=== PATIENT | female | born 1995 | race Caucasian/White ===

== ENCOUNTER 2021-08-31 13:51 | Outpatient (CLI) | payer BC, SELFPAY ==
[2021-08-31] VITALS (8 sets, daily range): BP systolic 125–143; BP diastolic 74–82; PULSE 78–101; RESP 18; TEMP 36.6; BMI 29.7
[2021-08-31 14:31] LABS: Basophils # 0.1 10^3/uL (0.0-0.1); Basophils % 0.7 %; Eosinophils # 0.1 10^3/uL (0.0-0.8); Eosinophils % 0.9 %; Hematocrit 34.2 % (37.0-47.0); Lymphocytes # 1.8 10^3/uL (0.8-4.8); Lymphocytes % 20.5 %; Mean Corpuscular HGB Conc 32.2 g/dL (30.0-36.0); Mean Corpuscular Hemoglobin 27.5 pg (28.0-34.0); Mean Corpuscular Volume 85.5 fl (81-99); Mean Platelet Volume 11.6 fL (7.4-10.4); Monocytes # 0.5 10^3/uL (0.2-0.9); Monocytes % 6.2 %; Neutrophils % 69.4 %; Nucleated Red Blood Cells % 0 %; Platelet Count 190 10^3/cmm (130-400); Red Cell Distribution Width 13.8 % (12.1-15.1); White Blood Count 8.5 10^3/uL (4.0-10.0)
[2021-08-31 14:53] LABS: Alanine Aminotransferase 13 U/L (0-33); Albumin Level 3.6 g/dL (3.5-5.2); Alkaline Phosphatase 148 IU/L (35-105); Anion Gap 16.9 (5-19); Aspartate Amino Transferase 19 U/L (0-32); Blood Urea Nitrogen 6 mg/dL (6-20); Calcium 9.1 mg/dL (8.5-10.5); Carbon Dioxide 19 mmol/L (22-29); Chloride 104 mmol/L (98-107); Globulin 2.8 g/dL (1.3-4.6); Glucose 78 mg/dL (65-115); Osmolality Calculated 278 mOsm/kg (285-295); Potassium 3.9 mmol/L (3.5-5.1); Sodium 136 mmol/L (136-145); Total Bilirubin 0.2 mg/dL (0.15-1.2); Total Protein 6.4 g/dL (6.6-8.7); Uric Acid 4.3 mg/dL (2.4-5.7)
[2021-08-31 15:09] LABS: Urine Creatinine 18 mg/dL (28-217); Urine Protein Random 4 mg/dL
[2021-08-31 15:14] LABS: Bilirubin Urine Neg (Negative); Blood Urine Neg (Negative); Glucose Urine UA Norm (Normal); Ketones Urine Negative (Negative); Nitrate Urine Negative (Negative); Protein Urine Neg (Negative); Specific Gravity, Urine 1.005 (1.005-1.030); Urine Appearance Hazy (CLEAR); Urine Color Straw (Yellow); Urobilinogen Urine Norm (Negative); pH Urine 6.5 (5-7)
[2021-08-31 15:15] LABS: Add Urine Culture? No; Add Urine Microscopic? YES; Bacteria Urine TRACE /hpf; Leukocyte Esterase Urine 2+ (Negative); RBC Urine 0-4 /hpf (0-2); Transitional Epi Cells Urine 0-4 /hpf
[2021-08-31 15:16] LABS: UPRO/UCREAT Ratio 0.22 mg/mg CR
== END 2021-08-31 15:35 | disposition home or self-care (01) ==
LOC: OPOB 13:53 → OBGYN 13:54
PROVIDERS: Absent Provider Family Medicine; Visit Provider Family Medicine
DX: O16.9 Unspecified maternal hypertension, unspecified trimester (principal); Z3A.00 Weeks of gestation of pregnancy not specified
CPT/HCPCS: 36415; 59025; 80053; 81001; 82570; 84156; 84550; 85025; 99211

== ENCOUNTER 2021-09-13 12:35 | Outpatient (CLI) | payer BC, SELFPAY ==
[2021-09-13] VITALS (10 sets, daily range): BP systolic 129–139; BP diastolic 80–93; PULSE 70–88; TEMP 36.4; BMI 30.4
[2021-09-13 13:41] LABS: Basophils % 0.5 %; Eosinophils # 0.1 10^3/uL (0.0-0.8); Eosinophils % 1.1 %; Hematocrit 34.3 % (37.0-47.0); Hemoglobin 11.1 g/dL (11.5-15.3); Lymphocytes # 1.8 10^3/uL (0.8-4.8); Lymphocytes % 22.6 %; Mean Corpuscular HGB Conc 32.4 g/dL (30.0-36.0); Mean Corpuscular Hemoglobin 27.1 pg (28.0-34.0); Mean Corpuscular Volume 83.9 fl (81-99); Mean Platelet Volume 11.8 fL (7.4-10.4); Monocytes # 0.3 10^3/uL (0.2-0.9); Monocytes % 3.7 %; Neutrophils # 5.59 10^3/uL (1.8-7.7); Neutrophils % 70.8 %; Nucleated Red Blood Cells % 0 %; Platelet Count 213 10^3/cmm (130-400); Red Blood Count 4.09 10^6/uL (4.1-5.3); Red Cell Distribution Width 14.3 % (12.1-15.1); White Blood Count 7.9 10^3/uL (4.0-10.0)
[2021-09-13 14:29] LABS: Add Urine Microscopic? YES; Bilirubin Urine Neg (Negative); Blood Urine Neg (Negative); Glucose Urine UA Norm (Normal); Ketones Urine Negative (Negative); Leukocyte Esterase Urine 2+ (Negative); Nitrate Urine Negative (Negative); Protein Urine Neg (Negative); Specific Gravity, Urine 1.005 (1.005-1.030); Urine Appearance Clear (CLEAR); Urine Color Colorless (Yellow); Urobilinogen Urine Norm (Negative); pH Urine 7 (5-7)
[2021-09-13 14:34] LABS: Alanine Aminotransferase 13 U/L (0-33); Albumin Level 3.6 g/dL (3.5-5.2); Alkaline Phosphatase 163 IU/L (35-105); Anion Gap 18.7 (5-19); Aspartate Amino Transferase 20 U/L (0-32); Blood Urea Nitrogen 5 mg/dL (6-20); Carbon Dioxide 18 mmol/L (22-29); Chloride 102 mmol/L (98-107); Globulin 2.9 g/dL (1.3-4.6); Glucose 71 mg/dL (65-115); Osmolality Calculated 276 mOsm/kg (285-295); Potassium 3.7 mmol/L (3.5-5.1); Sodium 135 mmol/L (136-145); Total Bilirubin 0.3 mg/dL (0.15-1.2); Total Protein 6.5 g/dL (6.6-8.7); Uric Acid 5.2 mg/dL (2.4-5.7)
[2021-09-13 14:48] LABS: UPRO/UCREAT Ratio 0.33 mg/mg CR; Urine Creatinine 12 mg/dL (28-217); Urine Protein Random 4 mg/dL
[2021-09-13 14:52] LABS: Add Urine Culture? No; Bacteria Urine 1+ /hpf; RBC Urine 0-4 /hpf (0-2); Squamous Epithelial Cell Urine 15-25 /hpf (0-5)
== END 2021-09-13 15:05 | disposition home or self-care (01) ==
LOC: OPOB 12:37 → OBGYN 12:45
PROVIDERS: Visit Provider Family Medicine
DX: O16.9 Unspecified maternal hypertension, unspecified trimester (principal); Z3A.00 Weeks of gestation of pregnancy not specified
CPT/HCPCS: 80053; 81001; 82570; 84156; 84550; 85025

== ENCOUNTER 2021-09-20 21:45 | Inpatient (IN) | payer BC, MEDICAID, SELFPAY ==
[2021-09-20 21:26] VITALS: BMI 29.7
[2021-09-20 21:46] VITALS: BP 141/86; PULSE 90
[2021-09-20 21:52] VITALS: TEMP 36.1
[2021-09-20 22:02] VITALS: BP 142/85; PULSE 82
[2021-09-20 22:51] LABS: Basophils % 0.3 %; Eosinophils # 0.1 10^3/uL (0.0-0.8); Eosinophils % 0.9 %; Hematocrit 34.1 % (37.0-47.0); Hemoglobin 10.8 g/dL (11.5-15.3); Lymphocytes # 2.3 10^3/uL (0.8-4.8); Mean Corpuscular HGB Conc 31.7 g/dL (30.0-36.0); Mean Corpuscular Hemoglobin 26.7 pg (28.0-34.0); Mean Corpuscular Volume 84.4 fl (81-99); Monocytes # 0.7 10^3/uL (0.2-0.9); Monocytes % 5.7 %; Neutrophils # 8.41 10^3/uL (1.8-7.7); Neutrophils % 72.2 %; Nucleated Red Blood Cells % 0 %; Platelet Count 186 10^3/cmm (130-400); Red Blood Count 4.04 10^6/uL (4.1-5.3); Red Cell Distribution Width 14.5 % (12.1-15.1); White Blood Count 11.7 10^3/uL (4.0-10.0)
[2021-09-20 23:08] LABS: Bilirubin Urine Neg (Negative); Blood Urine Neg (Negative); Glucose Urine UA Norm (Normal); Ketones Urine Negative (Negative); Leukocyte Esterase Urine 2+ (Negative); Nitrate Urine Negative (Negative); Protein Urine Neg (Negative); Urine Appearance Hazy (CLEAR); Urine Color Yellow (Yellow); Urobilinogen Urine Norm (Negative); pH Urine 7 (5-7)
[2021-09-20 23:09] LABS: Add Urine Microscopic? YES
[2021-09-20 23:10] LABS: Squamous Epithelial Cell Urine 0-4 /hpf (0-5); WBC Urine 0-4 /hpf (0-5)
[2021-09-20 23:12] VITALS: BP 134/79; PULSE 91
[2021-09-20 23:16] LABS: Urine Creatinine 26 mg/dL (28-217); Urine Protein Random 4 mg/dL
[2021-09-20 23:17] LABS: Alanine Aminotransferase 10 U/L (0-33); Albumin Level 3.7 g/dL (3.5-5.2); Alkaline Phosphatase 163 IU/L (35-105); Anion Gap 16.6 (5-19); Aspartate Amino Transferase 17 U/L (0-32); Blood Urea Nitrogen 8 mg/dL (6-20); Carbon Dioxide 19 mmol/L (22-29); Chloride 102 mmol/L (98-107); Globulin 2.9 g/dL (1.3-4.6); Glomerular Filtration Rate 119.9 mL/min (90-130); Glucose 88 mg/dL (65-115); Osmolality Calculated 276 mOsm/kg (285-295); Potassium 3.6 mmol/L (3.5-5.1); Sodium 134 mmol/L (136-145); Total Bilirubin 0.3 mg/dL (0.15-1.2); Total Protein 6.6 g/dL (6.6-8.7); UPRO/UCREAT Ratio 0.15 mg/mg CR; Uric Acid 4.9 mg/dL (2.4-5.7)
[2021-09-20 23:33] VITALS: BP 131/78; PULSE 84
--- NOTE | 2021-09-20 23:59 | PC.NURSE ---
Patient requesting to stay off monitors for the remainder of her hour for intermittent monitoring and then proceed with pitocin initiation.
[2021-09-21] VITALS (58 sets, daily range): BP systolic 106–149; BP diastolic 55–96; PULSE 69–136; RESP 17–18; TEMP 36.7–36.9; O2SAT 98–100
--- NOTE | 2021-09-21 00:24 | PM.OPHPUD ---
Labor & Delivery H&P Update Date of Procedure: September 21, 2021 Date H&P Performed: 09/19/21 H&P update information: I have reviewed H&P completed within last 30 days, I have examined patient prior to procedure and Changes to prior documentation as noted here (The patient cervix is now 5 cm dilated.) Admission Diagnosis: 40-week AGA female. Active labor. Isolated high blood pressure. Planned procedure: Spontaneous vaginal delivery. Other information: Originally, the patient had elevated blood pressure. As result we performed a preeclamptic panel which was negative. She has had multiple episodes of having high blood pressure that resolved with time. She admits to being somewhat anxious upon initial evaluation of her blood pressure. Related Problem List Diagnoses (1) 40 weeks gestation of : (2) Active labor at term: (3) High blood pressure affecting in third trimester, antepartum:
--- NOTE | 2021-09-21 00:55 | PC.NURSE ---
Patient called RN to bedside for education on counter pressure with contractions. RN demonstrated to patients how to do counter pressure and discussed different positions to help open pelvis to aide in further engagement of head into pelvis. Patient and very receptive to education and mother feeling relief with counter pressure. Patient states that she feels like her contractions are more frequent and increasing in intensity, so SVE done and patient put back on monitor. While at bedside, patient asking questions about pitocin. Since patient made cervical change she is requesting to hold off on pitocin at this time and see if she will continue making cervical change on her own.
[2021-09-21] MEDS: dextrose 5%-lactated ringers 1,000 ML 125 ML IV (03:12)
[2021-09-21] MEDS: oxytocin 30 UNIT/500 ML BAG IV (03:15)
--- NOTE | 2021-09-21 04:42 | PC.NURSE ---
Rn at bedside. Patient requesting physician to break her water and states that she normally goes quickly when she ruptures.
[2021-09-21] MEDS: lactated ringers 1,000 ML 999 ML IV (04:50)
--- NOTE | 2021-09-21 05:48 | ANES.PREANE2 ---
Pre-Anesthetic Assessment Pre-Anesthetic Assessment: Height/Weight: Height 1.6 m Weight 76.204 kg Temp Pulse BP 97.0 F L 96 133/85 09/20/21 21:52 09/21/21 05:45 09/21/21 05:45 Preop Diagnosis: labor pain Proposed Procedure: epidural Familial anesthetic complications: epidural x 2 1. epidural lasted a long time after being pulled 2. epidural got too high on one side, dilated unilateral pupil Was Beta Abundio taken within 24 hours: N/A Was Clonidine taken within 24 hours: N/A Social: Social History: No alcohol and No tobacco Exam: Pre-Anes Outpt Exam: alert, oriented x 3, clear to auscultation bilaterally and regular rate & rhythm Airway: Submandibular: WNL Cervical ROM: WNL MP: 2 Dentition: Full Pulmonary: Pulmonary: None reported CV/HEM: CV/HEM: HTN (gestational) : : None reported Hepatic: Hepatic: None reported GI: GI: None reported Metabolic: Metabolic: None reported Musc/skel: Musc/skel: None reported Neuropsych: Neuropsych: Anxiety and LOONEY Anesthetic Plan: ASA status: 2 Anesthesia: Regional (specify below) Risk of > 500 ml blood loss (7ml/kg in children): No Meds/Allergies Current Medications: Current Medications Generic Name Dose Route Start Last Admin Trade Name Freq PRN Reason Stop Dose Admin Dextrose/Lactated Ringer's 1,000 mls @ 125 m ls/hr 09/20/21 21:51 09/21/21 03:12 Dextrose 5%-Lact ated Ringers IV 125 mls/hr .Q8H PRN Administration Labor Oxytocin 30 unit in 500 ml s @ 1 mls/hr 09/20/21 23:53 09/21/21 05:15 Pitocin IV 5 milliunit/min .Q24H PRN 5 mls/hr Augmentation Titration Protocol 1 MILLIUNIT/MIN Lactated Ringer's 1,000 mls @ 999 m ls/hr 09/21/21 04:51 09/21/21 04:50 Lactated Ringers IV 999 mls/hr .Q1H1M PRN Administration See label comment s PFSH Anesthesia Female Reproductive History: : 3 Data Anesthesia CBC & Chem 7: 09/20/21 22:40 09/20/21 22:40 Other Labs: Laboratory Results - last 48 hr 09/20/21 09/20/21 09/20/21 22:40 22:40 22:40 WBC 11.7 H RBC 4.04 L Hgb 10.8 L Hct 34.1 L MCV 84.4 MCH 26.7 L MCHC 31.7 RDW 14.5 Plt Count 186 MPV 12.0 H Neut % (Auto) 72.2 Lymph % (Auto) 20.0 [place] % (Auto) 5.7 Eos % (Auto) 0.9 Baso % (Auto) 0.3 Neut # (Auto) 8.41 H Lymph # (Auto) 2.3 [place] # (Auto) 0.7 Eos # (Auto) 0.1 Baso # (Auto) 0.0 Nucleated RBC % (auto) 0 Nucleated RBCs # 0.0 Sodium Potassium Chloride Carbon Dioxide Anion Gap BUN Creatinine GFR Calculation Glucose Calculated Osmolality Uric Acid Calcium Total Bilirubin AST ALT Alkaline Phosphatase Total Protein Albumin Globulin Urine Color Yellow Urine Appearance Hazy A Urine pH 7 Ur Specific [place] 1.010 Urine Protein Neg Urine Glucose (UA) Norm Urine Ketones Negative Urine Blood Neg Urine Nitrate Negative Urine Bilirubin Neg Urine Urobilinogen Norm Ur Leukocyte Esterase 2+ H Urine RBC None Urine WBC 0-4 H Ur Squamous Epith Cells 0-4 H Amorphous Sediment Not Reportable Urine Bacteria None U Random Total Protein 4 Urine Creatinine 26 L Protein/Creatinin Ratio 0.15 09/20/21 22:40 WBC RBC Hgb Hct MCV MCH MCHC RDW Plt Count MPV Neut % (Auto) Lymph % (Auto) [place] % (Auto) Eos % (Auto) Baso % (Auto) Neut # (Auto) Lymph # (Auto) [place] # (Auto) Eos # (Auto) Baso # (Auto) Nucleated RBC % (auto) Nucleated RBCs # Sodium 134 L Potassium 3.6 Chloride 102 Carbon Dioxide 19 L Anion Gap 16.6 BUN 8 Creatinine 0.6 GFR Calculation 119.9 Glucose 88 Calculated Osmolality 276 L Uric Acid 4.9 Calcium 9.0 Total Bilirubin 0.3 AST 17 ALT 10 Alkaline Phosphatase 163 H Total Protein 6.6 Albumin 3.7 Globulin 2.9 Urine Color Urine Appearance Urine pH Ur Specific [place] Urine Protein Urine Glucose (UA) Urine Ketones Urine Blood Urine Nitrate Urine Bilirubin Urine Urobilinogen Ur Leukocyte Esterase Urine RBC Urine WBC Ur Squamous Epith Cells Amorphous Sediment Urine Bacteria U Random Total Protein Urine Creatinine Protein/Creatinin Ratio Cardiac Studies: No Data to Display
--- NOTE | 2021-09-21 06:18 | ANES.PROC ---
Anesthesia Procedures Procedure/Date: 09/21/21 epidural Procedure Narrative: epidural complete, bolus given, epidural pump initiated with BINDER CUTTER education given, vitals taken during procedure using OBIX system and satisfactory throughout, patient admits to decrease pain, report of procedure to OB RN Epidural: Time Out Performed: Yes Consents Signed: Procedure Consent Consent: requested by attending/covering physician, from patient, risks and benefits reviewed and patient agrees to proceed Lumbar Level: L3-L4 Epidural position: sitting Epidural procedure: sterile prep of area, 1% lidocaine to numb the area (3 mL), 18 g needle, negative for paresthesia passed, neg for paresthesia, test dose given, 1.5% xylocaine 1:200k epi (5 mL), 0.2% Ropivacaine bolus ml (5 mL), placed PCEA, no systemic response, sterile dressing applied, L.U.D. no apparent complications and 0.2% Ropiavacaine @ mls/hr (13 mL/hr)
--- NOTE | 2021-09-21 08:31 | PM.DELIVERY ---
Delivery Note: Date of delivery: September 21, 2021 Pre-delivery diagnoses: 1. 25-year-old 4 para 2-0-1-2 with an estimated gestational age of 40 weeks 2. Active labor 3. Transient hypertension Post-delivery diagnoses: Status post spontaneous vaginal delivery Procedure: Spontaneous vaginal delivery Op report anesthesia: Epidural Estimated blood loss (mL): 100 Pre-Delivery Course: The patient presented to the hospital in active labor the night prior to delivery. An epidural was placed. Pitocin was placed. An amniotomy was performed. She progressed to complete without difficulty. Delivery: DELIVERY: The patient progressed to complete without difficulty. She delivered a male with a weight of 7 pounds 1 ounce with Apgars of 9, 9. The baby was delivered from the NORM position. The baby's mouth and nose were suctioned at the site of the perineum. The baby was then completely delivered and placed on the mother's abdomen. The cord was then clamped and cut. There was no nuchal cord. There was light meconium. The placenta and 3 vessel cord were delivered intact shortly thereafter. The perineum and vaginal vault were carefully examined. No lacerations were noted. Both the mother and the baby were in stable condition. Post-Delivery Status: Good A&P Assessment and plan (1) 40 weeks gestation of : Status: Acute (2) Active labor at term: Status: Acute (3) High blood pressure affecting in third trimester, antepartum: Status: Acute (4) Spontaneous vaginal delivery: Status: Acute Coding Level of Care Code Acute Undertaker Assistant for Chg Fwd Diagnoses 40 weeks gestation of Z3A.40 Active labor at term High blood pressure affecting in third trimester, antepartum O16.3 Spontaneous vaginal delivery O80
--- NOTE | 2021-09-21 08:38 | PM.MISC ---
Miscellaneous Note Purpose of Documentation: Epidural bolused with 100mcg fent and 5ml of 2% lido.
--- NOTE | 2021-09-21 12:03 | PC.NURSE ---
pt up to bathroom without difficulty. void 400mL. tatiana care performed by pt. gown/underwear/pad changed. pt ambulated back to bed, tolerated well.
--- NOTE | 2021-09-21 13:05 | ANE.PACU2 ---
Inpatient post-anesthesia follow up: Airway intact: Yes Vital signs: Temperature 98.4 F Pulse Rate 97 Respiratory Rate 17 Blood Pressure 127/76 Pulse Oximetry 100 Oxygen Delivery Me thod Room Air Oxygen Flow Rate Fraction of Inspir ed Oxygen Hydration adequate: Yes Nausea and vomiting: No Pain level: 2 Mental status: Baseline
--- NOTE | 2021-09-21 13:31 | PC.NURSE ---
Patient ambulated to room at this time. No complaints of dizziness or feelings of lightheaded
[2021-09-21 21:04] LABS: Hematocrit 31.6 % (37.0-47.0); Mean Corpuscular HGB Conc 31.6 g/dL (30.0-36.0); Mean Corpuscular Hemoglobin 26.9 pg (28.0-34.0); Mean Corpuscular Volume 84.9 fl (81-99); Mean Platelet Volume 12.1 fL (7.4-10.4); Platelet Count 174 10^3/cmm (130-400); Red Blood Count 3.72 10^6/uL (4.1-5.3); Red Cell Distribution Width 14.6 % (12.1-15.1)
[2021-09-22 02:00] VITALS: BP 129/68; PULSE 68; RESP 17; O2SAT 99
[2021-09-22 04:03] VITALS: BP 128/81; PULSE 83; RESP 18; TEMP 36.9; O2SAT 98
--- NOTE | 2021-09-22 08:08 | PM.OBGYDC ---
Discharge Providers CAREER TECHNICAL SUPERVISOR Date of Admission: 09/20/21 21:45 Date of Discharge: 09/29/21 Attending Provider at Admission: Flo Hagan MD Attending Provider at Discharge: Flo aHgan MD Diagnoses at Discharge Discharge Diagnosis (1) 40 weeks gestation of : Status: Resolved (2) Active labor at term: Status: Resolved (3) High blood pressure affecting in third trimester, antepartum: Status: Resolved (4) Spontaneous vaginal delivery: Status: Resolved Reason for Visit Reason for Visit: Contractions Hospital Course Hospital Course The patient presented to the hospital in active labor. She progressed to complete and had an unremarkable delivery of a healthy appearing . She did have some gestational hypertension. It resolved without intervention. The patient's course was also unremarkable. Her bleeding was within normal limits. Her pain was well controlled. Information Peripartum Data: Infant Delivery Method: Vaginal Physical Exam Narrative: EXAM NARRATIVE: The patient's blood pressures have been markedly improved after her initial blood pressures upon arriving at the hospital. The patient is alert. She appears comfortable. Her heart has a regular rate and rhythm with no murmurs appreciated. Lungs are clear to auscultation bilaterally. Her fundus is firm and below the umbilicus. Urinary Catheter Management^: Bah: Cath Placed During This Visit: yes Reason for Continuing Indwelling Catheter: Required Immobilization for Trauma or Surgery or Anesthesia Urinary Catheter Date of Insertion: 09/21/21 Urinary Catheter Time of Insertion: 06:38 Discharge Data Data Completed and Pending: Labs from last 24 hours 09/21/21 20:30 WBC 12.0 H RBC 3.72 L Hgb 10.0 L Hct 31.6 L MCV 84.9 MCH 26.9 L MCHC 31.6 RDW 14.6 Plt Count 174 MPV 12.1 H Vitals: Last Vital Signs Temp 98.5 F 09/22/21 04:03 Pulse 83 09/22/21 04:03 Resp 18 09/22/21 04:03 BP 128/81 09/22/21 04:03 Pulse Ox 98 09/22/21 04:03 Discharge Plan Discharge Patient Disposition: Home Condition: Stable Prescriptions: New ibuprofen 800 mg Tablet 800 mg PO TID Qty: 45 RF: 0 -U 106.5-1 mg Capsule 1 cap PO DAILY Qty: 90 RF: 0 Discharge Orders: Discharge Order (Routine); Ordered 09/22/21 Ordered By: Flo Hagan Referrals: Flo Hagan MD [Physician] - 10/30/21 10:30 am Discharge Diet: Usual diet Discharge Activity: Limit activity as instructed Patient Instructions: Your Baby (GEN), and Nipple Soreness (GEN), and Breast Engorgement (GEN), Caring for Your Breastfed Baby (GEN), OB Discharge Report, OB Food/Drug Interaction Guide, OB Care at Home, Opioid Safety, OB Vaginal Deliveries Discharge Attestations CAREER TECHNICAL SUPERVISOR Time Spent in Discharge Care*: less than 30 min Specific Discharge Activities: Specific discharge activities: educating patient and educating and/or supporting family/caregiver Coding Level of Care Code Acute E Commerce Project Manager for Chg Fwd Diagnoses 40 weeks gestation of Z3A.40 Active labor at term High blood pressure affecting in third trimester, antepartum O16.3 Spontaneous vaginal delivery O80
[2021-09-22] MEDS: ibuprofen 800 mg tablet PO (08:51)
[2021-09-22] MEDS: prenatal vitamin Capsule 1 CAP PO (08:52)
[2021-09-22] MEDS: docusate sodium 100 mg Capsule PO (08:52)
[2021-09-22 10:30] VITALS: BP 124/78; PULSE 88; RESP 16; TEMP 36.6; O2SAT 99
== END 2021-09-22 10:35 | disposition home or self-care (01) | DRG 807 ==
PROVIDERS: Admitting Provider Family Medicine; Visit Provider Family Medicine
DX: O13.4 Gestational [pregnancy-induced] hypertension without significant proteinuria, complicating childbirth (principal); Z37.0 Single live birth; O77.0 Labor and delivery complicated by meconium in amniotic fluid; Z3A.40 40 weeks gestation of pregnancy
CPT/HCPCS: 12345; 36415; 51702; 59025; 59409; 80053; 81001; 82570; 84156; 84550; 85025; 85027; 98960; 99211; J2795; J3010